=== PATIENT | female | born 1995 | race Caucasian/White ===

== ENCOUNTER → 2024-12-05 | Outpatient (CLI) | payer BC ==
[2024-12-05 13:39] LABS: BILIRUBIN Negative (Negative); BLOOD Negative (Negative); CLARITY Cloudy (Clear); COLOR Yellow (Yellow); KETONE Trace (Negative); LEUKO ESTERASE Negative (Negative); NITRITE Negative (Negative); PH 5.5 (4.5-8.0); SPECIFIC GRAVITY >= 1.030 (1.001-1.030); UROBILINOGEN 1.0 E.U./dl (0.0-1.0)
[2024-12-05 14:04] LABS: EPITHELIAL CELLS 16-20; MUCOUS TRACE
[2024-12-05 14:05] LABS: BACTERIA 3+; RBC 0-2 rbc/hpf (0-2)
== END | disposition home or self-care (01) ==
LOC: LAB 13:16
PROVIDERS: ATTEND Physician Assistant Surgical
DX: R30.0 Dysuria (principal)

== ENCOUNTER → 2025-01-31 | Outpatient (CLI) | payer BC ==
[2025-01-31 11:53] LABS: BILIRUBIN Negative (Negative); BLOOD Negative (Negative); CLARITY Clear (Clear); COLOR Yellow (Yellow); KETONE Negative (Negative); LEUKO ESTERASE Negative (Negative); NITRITE Negative (Negative); PH 6.5 (4.5-8.0); SPECIFIC GRAVITY 1.010 (1.001-1.030); UROBILINOGEN 0.2 E.U./dl (0.0-1.0)
[2025-01-31 12:52] LABS: BACTERIA 1+; MUCOUS 1+
== END | disposition home or self-care (01) ==
LOC: LAB 00:08
PROVIDERS: ATTEND Physician Assistant
DX: R30.0 Dysuria (principal)

== ENCOUNTER → 2025-02-21 | Outpatient (CLI) | payer BC | END | disposition home or self-care (01) | LOC: LAB 11:00 | PROVIDERS: ATTEND Physician Assistant Surgical | DX: R30.0 Dysuria (principal) ==